=== PATIENT | male | born 1990 | race Two or more races ===

== ENCOUNTER → 2024-12-25 | Outpatient (CLI) | payer OTHER | LOC: M RAD 14:22 | PROVIDERS: ATTEND Physician Assistant | DX: M79.641 Pain in right hand (principal) ==

== ENCOUNTER 2025-04-18 09:18 | Day surgery (SDC) | payer OTHER ==
[~2025-04-18] VITALS: Ht 177.8 cm; Wt 99.3 kg
[~2025-04-18 09:18] MED LIST: ACET-907 PO
[2025-04-18] MEDS ORDERED: LR 1,000 ML IV SCH ×2 (09:45→13:05)
[2025-04-18] MEDS ORDERED: MIDAZOLAM INJ 2 MG/2 ML VIAL As Ordered ONE (10:28)
[2025-04-18] MEDS: LIDOCAINE 1% SDV 5 ML VIAL PN ONE (10:34)
[2025-04-18] MEDS: ROPIvacaine 0.5% 30ML VIAL PN ONE (10:34)
[2025-04-18] MEDS: MIDAZOLAM INJ 2 MG/2 ML VIAL IV PRN (10:34)
[2025-04-18] MEDS: dexAMETHasone 10 MG/1 ML VIAL PRES.FREE PN ONE (10:35)
[2025-04-18] MEDS ORDERED: dexmedeTOMIDine (4 MCG/ML) 200 MCG/50 ML BTL As Ordered ONE (10:54)
[2025-04-18] MEDS ORDERED: LIDOCAINE 2% 100 MG/5 ML SDV (FOR ANES.) As Ordered ONE (10:54)
[2025-04-18] MEDS ORDERED: dexAMETHasone 4 MG/ML 1 ML VIAL As Ordered ONE (10:54)
[2025-04-18] MEDS: ceFAZolin SOD 2 GM IV ONCE IV ONE (11:24)
[2025-04-18] MEDS ORDERED: ACETAMINOPHEN 1000MG/100ML IV BAG As Ordered ONE (11:28)
[2025-04-18] MEDS ORDERED: HYDROMORPHONE HCL 0.5 MG/0.5 ML SYRINGE IV PRN (13:05)
[2025-04-18] MEDS: diphenhydrAMINE 50 MG/ML VIAL IV ONE (13:25)
[2025-04-18] MEDS ORDERED: PERC5TAB12 PO (13:27)
[2025-04-18 14:41] LABS: HIV SCREEN CENTAUR SOURCE NEGATIVE (NEGATIVE)
[2025-04-18 14:49] LABS: HEP C VIRUS AB INDEX SOURCE PT < 0.0 INDEX (0.0-0.8)
[2025-04-18 15:46] VITALS: BP 100/60; TEMP 97.6; O2SAT 96
== END 2025-04-18 16:15 | disposition home or self-care (01) ==
LOC: M SDC 09:18
PROVIDERS: ATTEND Orthopaedic Surgery Hand Surgery
DX: S63.391A Traumatic rupture of other ligament of right wrist, initial encounter (principal); X50.0XXA Overexertion from strenuous movement or load, initial encounter; Y93.B3 Activity, free weights; Y92.9 Unspecified place or not applicable
CPT/HCPCS: 25320; 76000; 86803; 87340; 87389; J0131; J0665; J0688; J1100; J1200; J2250; J2550; J2765; J2795; J3010

== ENCOUNTER → 2025-05-02 | Outpatient (CLI) | payer OTHER ==
[~2025-05-02] MED LIST changes: +PERC5TAB12 PO
== END ==
LOC: M SOG 09:31
PROVIDERS: ATTEND Physician Assistant
DX: M24.531 Contracture, right wrist (principal); Z98.890 Other specified postprocedural states

== ENCOUNTER → 2025-05-27 | Outpatient (CLI) | payer OTHER | LOC: M SOG 07:35 | PROVIDERS: ATTEND Orthopaedic Surgery Hand Surgery | DX: M24.231 Disorder of ligament, right wrist (principal) ==